=== PATIENT | male | born 1980 ===

== ENCOUNTER 2023-12-26 04:02 | Observation (INO) | payer OTHER, SELFPAY ==
[2023-12-26] MEDS ORDERED: Acetaminophen 650 MG Suppository PR PRN (07:22)
[2023-12-26] MEDS: Acetaminophen 325 MG TAB PO PRN (08:27)
[2023-12-26] MEDS: Lactated Ringer's 1,000 ML IV SCH (08:29)
[2023-12-26] MEDS: Famotidine/PF 20 mg/2ml Vial SLOW IVP SCH (08:29)
[2023-12-26] MEDS: Morphine 4 MG/ML VIAL SLOW IVP PRN (08:35)
[2023-12-26] MEDS: Pantoprazole 40 MG VIAL IVP SCH (08:45)
[2023-12-26 10:46] VITALS: BMI 28.1
[2023-12-26] MEDS ORDERED: MD-Gastroview 120 ML BOT ONE ×3 (10:59→15:34)
[2023-12-26] MEDS: Ondansetron PF 4 MG/2 ML Vial IVP PRN (14:15)
[2023-12-26] MEDS: Ketorolac Tromethamine 30 MG (1 mL) VIAL IVP PRN (14:15)
[2023-12-27 04:44] LABS: Lactic Acid 0.8 mmol/L (0.5-2.2)
[2023-12-27 04:49] LABS: ALT (SGPT) 60 U/L (8-55); AST (SGOT) 29 U/L (5-34); Albumin 4.2 g/dL (3.5-5.0); Alkaline Phosphatase 71 U/L (40-110); Anion Gap 11 mmol/L (10-20); BUN (Urea Nitrogen) 15 mg/dL (8.9-20.6); Calc. Creatinine Clearance 89 mL/min (70-130); Calcium 9.3 mg/dL (7.8-10.44); Carbon Dioxide 27 mmol/L (22-29); Chloride 108 mmol/L (98-107); Estimated GFR 75; Globulin 3.8 g/dL (2.4-3.5); Glucose 90 mg/dL (70-105); Potassium 4.5 mmol/L (3.5-5.1); Sodium 141 mmol/L (136-145)
[2023-12-27 07:59] LABS: Magnesium 2.3 mg/dL (1.6-2.6); Phosphorus 3.7 mg/dL (2.3-4.7)
[2023-12-27] MEDS: FLU VACC QS2023-24(6MOS UP)/PF 60 MCG/0.5 ML SYRINGE IM ONE (09:24)
[2023-12-27 11:28] VITALS: BP 134/87; TEMP 97.2
== END 2023-12-27 13:50 | disposition home or self-care (01) ==
LOC: INTOOBSV 04:02 → SJJU 04:02
PROVIDERS: ADMIT Internal Medicine; ATTEND Internal Medicine
DX: K56.609 Unspecified intestinal obstruction, unspecified as to partial versus complete obstruction (principal); K21.9 Gastro-esophageal reflux disease without esophagitis; E86.0 Dehydration; Z87.891 Personal history of nicotine dependence; Z79.899 Other long term (current) drug therapy; Z90.89 Acquired absence of other organs
CPT/HCPCS: 36415; 74018; 74250; 80053; 83605; 83735; 84100; 96374; 96375; 96376; C9113; G0378; J1885; J2270; J2405; J7120; Q9963; S0028